=== PATIENT | male | born 1955 | race African-American/Black ===

== ENCOUNTER 2020-05-01 00:03 | Inpatient (IN) ==
[2020-05-01] MEDS ORDERED: PIPERACILLIN/TAZOBACTAM 3,375 MG in SODIUM CHLORIDE 0.9% 100 ML IV STA (00:36)
[2020-05-01 01:26] LABS: Basophils % 0.3 % (0.0-0.8); Eosinophils # 0.1 10*3/uL (0.0-0.87); Eosinophils % 0.3 % (0.00-10.9); Hematocrit 31.2 VOL% (42.0-52.0); Immature Granulocytes % 0.5 %; Immature Granulocytes Absolute 0.08 #; Lymphocytes # 0.9 10*3/uL (1.4-4.0); Lymphocytes % 5.9 % (21.2-54.2); Mean Corpuscular HGB Conc 32.1 GM/DL (32-36); Mean Platelet Volume 8.7 FL (9.6-12.0); Monocytes % 8.5 % (1.7-12.7); Neutrophils % 84.5 % (38.7-73.9); Platelet Count 388 T/CUMM (130-400); Red Blood Count 3.43 MC/CUMM (3.8-5.5); White Blood Count 14.8 T/CUMM (4-12)
[2020-05-01 01:57] LABS: Hypochromasia 1+; Platelet Estimate Increased
[2020-05-01 02:09] LABS: Alanine Aminotransferase 42 U/L (16-61); Albumin 2.7 G/DL (3.4-5.0); Alkaline Phosphatase 57 U/L (45-117); Aspartate Amino Transferase 238 U/L (0-37); Bilirubin,Total < 0.39 MG/DL (0.2-1.0); Blood Urea Nitrogen 36 MG/DL (7-18); Calcium 8.9 MG/DL (8.5-10.1); Carbon Dioxide 21 MMOL/L (21-32); Estimated Glom Filtration Rate 59 ML/MIN; Glucose 237 MG/DL (74-106); Osmolality,Calculated 273.9 MOS/KG (273-304); Potassium 4.5 MMOL/L (3.5-5.1); Sodium 129 MMOL/L (136-145); Total Protein 8.3 G/DL (6.4-8.2)
[2020-05-01 02:14] LABS: Bacteria,Urine Occasional /HPF (Few); Bilirubin,Urine Negative (Negative); Blood, Urine Large mg/dL (Negative); Glucose,Urine (UA) >=500 mg/dL (Negative); Granular Casts,Urine 1 /LPF (0-1); Ketones,Urine 5 mg/dL (Negative); Mucus,Urine Occasional /LPF (Occasional); Nitrite,Urine Negative (Negative); Protein,Urine 30 MG/DL; RBC,Urine 1 /HPF (0-4); Squamous Epithelial Cell,Urine Occasional /HPF (0-10); Urine Appearance CLEAR (Clear); Urine Color Yellow (Yellow); Urine Specific Gravity 1.024 (1.001-1.035); Urine Urobilinogen < 2.0 EU/DL (0.2-1.0); WBC,Urine 3 /HPF (0-6)
[2020-05-01] MEDS ORDERED: SODIUM CHLORIDE 0.9% 500 ML IV STA (02:22)
[2020-05-01] MEDS ORDERED: DEXTROSE 50% 25 GM/50 ML VIAL IV PRN ×2 (04:25→14:22)
[2020-05-01] MEDS ORDERED: HYDROmorphone 2 MG TABLET PO PRN (04:25)
[2020-05-01] MEDS ORDERED: GLUCAGON 1 MG VIAL IM PRN ×2 (04:25→14:22)
[2020-05-01] MEDS ORDERED: ONDANSETRON 4 MG/2 ML VIAL IV PRN (04:25)
[2020-05-01] MEDS ORDERED: LORazepam 2 MG/1 ML VIAL IV ONE (04:45)
[2020-05-01] MEDS: ACETAMINOPHEN 325 MG TABLET PO PRN ×3 (05:40→21:43)
[2020-05-01] MEDS: SODIUM CHLORIDE 0.9% 1,000 ML IV SCH ×2 (06:24→15:22)
[2020-05-01] MEDS: INSULIN REGULAR 100 UNIT/ML SUBCUT SCH ×3 (06:24→18:11)
[2020-05-01] MEDS ORDERED: SODIUM CHLORIDE 0.9% 1,000 ML IV STA (07:31)
[2020-05-01] MEDS ORDERED: VANCOMYCIN INJ 1,750 MG in SODIUM CHLORIDE 0.9% 500 ML IV ONE (08:00)
[2020-05-01] MEDS: DOCUSATE SODIUM 100 MG CAPSULE PO SCH ×2 (09:01→21:39)
[2020-05-01] MEDS: lamoTRIgine 100 MG TABLET PO SCH (09:01)
[2020-05-01] MEDS: GABAPENTIN 600 MG TABLET PO SCH ×3 (09:01→21:38)
[2020-05-01] MEDS: GLIMEPIRIDE 2 MG TABLET PO SCH ×2 (09:01→21:38)
[2020-05-01] MEDS: METOPROLOL SUCCINATE XL 50 MG TABLET PO SCH (09:02)
[2020-05-01] MEDS: PANTOPRAZOLE 40 MG TABLET PO SCH (09:02)
[2020-05-01] MEDS: LORazepam 1 MG TABLET PO SCH ×3 (09:09→21:38)
[2020-05-01] MEDS: QUEtiapine 100 MG TABLET PO SCH ×2 (09:09→21:38)
[2020-05-01] MEDS: VENLAFAXINE XR 75 MG CAPSULE PO SCH (09:14)
[2020-05-01] MEDS: SELENIUM 200 MCG TABLET PO SCH (09:14)
[2020-05-01] MEDS: PIPERACILLIN/TAZOBACTAM 3,375 MG in SODIUM CHLORIDE 0.9% 100 ML IV SCH ×3 (12:09→21:37)
[2020-05-01] MEDS ORDERED: GLIMEPIRIDE 2 MG TABLET PO ONE (14:26)
[2020-05-01] MEDS ORDERED: DOCUSATE SODIUM 100 MG CAPSULE PO ONE (14:27)
[2020-05-01] MEDS ORDERED: VENLAFAXINE XR 75 MG CAPSULE PO ONE (14:27)
[2020-05-01] MEDS ORDERED: lamoTRIgine 100 MG TABLET PO ONE (14:27)
[2020-05-01] MEDS ORDERED: PANTOPRAZOLE 40 MG TABLET PO ONE (14:28)
[2020-05-01] MEDS ORDERED: SELENIUM 200 MCG TABLET PO ONE (14:29)
[2020-05-01] MEDS ORDERED: QUEtiapine 100 MG TABLET PO ONE (14:30)
[2020-05-01] MEDS ORDERED: METOPROLOL SUCCINATE XL 50 MG TABLET PO ONE (14:30)
[2020-05-01] MEDS: traZODone 50 MG TABLET PO SCH (21:37)
[2020-05-02] MEDS: INSULIN REGULAR 100 UNIT/ML SUBCUT SCH ×4 (04:26→17:19)
[2020-05-02] MEDS: PIPERACILLIN/TAZOBACTAM 3,375 MG in SODIUM CHLORIDE 0.9% 100 ML IV SCH ×3 (05:29→21:20)
[2020-05-02 06:02] LABS: Basophils % 0.3 % (0.0-0.8); Eosinophils # 0.1 10*3/uL (0.0-0.87); Eosinophils % 0.9 % (0.00-10.9); Hematocrit 29.1 VOL% (42.0-52.0); Hemoglobin 9.1 GM/DL (14.0-18.0); Immature Granulocytes % 0.9 %; Immature Granulocytes Absolute 0.13 #; Lymphocytes # 0.8 10*3/uL (1.4-4.0); Lymphocytes % 5.6 % (21.2-54.2); Mean Corpuscular HGB Conc 31.3 GM/DL (32-36); Mean Corpuscular Volume 91.8 FL (87-102); Mean Platelet Volume 9.2 FL (9.6-12.0); Monocytes % 7.2 % (1.7-12.7); Neutrophils % 85.1 % (38.7-73.9); Platelet Count 362 T/CUMM (130-400); Red Blood Count 3.17 MC/CUMM (3.8-5.5); Red Cell Distribution Width 14.1 % (9.3-17.3)
[2020-05-02 06:30] LABS: Albumin 2.5 G/DL (3.4-5.0); Bilirubin,Total 0.4 MG/DL (0.2-1.0); Calcium 8.8 MG/DL (8.5-10.1); Potassium 4.2 MMOL/L (3.5-5.1); Total Protein 7.8 G/DL (6.4-8.2)
[2020-05-02 06:46] LABS: Osmolality,Calculated 278.2 MOS/KG (273-304); Potassium 4.1 MMOL/L (3.5-5.1)
[2020-05-02] MEDS ORDERED: BUPIVACAINE MPF 0.25% 30 ML VIAL ONE (08:24)
[2020-05-02] MEDS ORDERED: LIDOCAINE 1% 20 ML VIAL ONE (08:24)
[2020-05-02] MEDS ORDERED: DEXAMETHASONE 4 MG/1 ML VIAL ONE (08:32)
[2020-05-02] MEDS ORDERED: LIDOCAINE 2% 5 ML VIAL ONE (08:32)
[2020-05-02] MEDS ORDERED: ONDANSETRON 4 MG/2 ML VIAL ONE (08:32)
[2020-05-02] MEDS ORDERED: propofoL 200 MG/20 ML VIAL IV ONE (08:32)
[2020-05-02] MEDS ORDERED: fentaNYL 100 MCG/2 ML VIAL ONE (08:32)
[2020-05-02] MEDS ORDERED: MIDAZOLAM 2 MG/2 ML VIAL ONE (08:33)
[2020-05-02] MEDS ORDERED: ACETAMINOPHEN 1,000 MG/100 ML VIAL IV ONE (08:48)
[2020-05-02] MEDS ORDERED: PHENYLEPHRINE 1 MG/10 ML SYRINGE IV ONE ×2 (08:59→09:26)
[2020-05-02] MEDS ORDERED: SODIUM CHLORIDE 0.9% 250 ML IV SCH (09:00)
[2020-05-02] MEDS ORDERED: SEVOFLURANE 1 UNIT/15 MINUTE INH ONE (09:11)
[2020-05-02] MEDS ORDERED: SODIUM CHLORIDE 0.9% 1,000 ML IV ONE (09:11)
[2020-05-02] MEDS: GABAPENTIN 600 MG TABLET PO SCH ×3 (10:44→21:09)
[2020-05-02] MEDS: METOPROLOL SUCCINATE XL 50 MG TABLET PO SCH (10:44)
[2020-05-02] MEDS: VENLAFAXINE XR 75 MG CAPSULE PO SCH (10:45)
[2020-05-02] MEDS: lamoTRIgine 100 MG TABLET PO SCH (10:45)
[2020-05-02] MEDS: GLIMEPIRIDE 2 MG TABLET PO SCH ×2 (10:46→21:09)
[2020-05-02] MEDS: PANTOPRAZOLE 40 MG TABLET PO SCH (10:46)
[2020-05-02] MEDS: QUEtiapine 100 MG TABLET PO SCH ×2 (10:47→21:09)
[2020-05-02] MEDS: LORazepam 1 MG TABLET PO SCH ×3 (10:47→21:09)
[2020-05-02] MEDS: DOCUSATE SODIUM 100 MG CAPSULE PO SCH ×2 (10:47→21:09)
[2020-05-02] MEDS: SELENIUM 200 MCG TABLET PO SCH (10:47)
[2020-05-02] MEDS ORDERED: DEXTROSE 50% 25 GM/50 ML VIAL IV PRN (12:26)
[2020-05-02] MEDS: VANCOMYCIN INJ 1,750 MG in SODIUM CHLORIDE 0.9% 500 ML IV SCH (12:41)
[2020-05-02] MEDS: SODIUM BICARB INJ 50 MEQ in SODIUM CHLORIDE 0.45% 1,000 ML IV SCH (14:44)
[2020-05-02] MEDS: SODIUM CHLORIDE 0.9% 1,000 ML IV SCH (14:47)
[2020-05-02] MEDS: ASPIRIN EC 81 MG TABLET PO SCH (14:48)
[2020-05-02] MEDS ORDERED: EZETIMIBE 10 MG TABLET PO SCH (21:00)
[2020-05-02] MEDS: traZODone 50 MG TABLET PO SCH (21:08)
[2020-05-03] MEDS: INSULIN REGULAR 100 UNIT/ML SUBCUT SCH ×5 (00:14→23:54)
[2020-05-03] MEDS: PIPERACILLIN/TAZOBACTAM 3,375 MG in SODIUM CHLORIDE 0.9% 100 ML IV SCH ×3 (04:08→21:09)
[2020-05-03 05:25] LABS: Basophils % 0.3 % (0.0-0.8); Eosinophils # 0.1 10*3/uL (0.0-0.87); Eosinophils % 0.9 % (0.00-10.9); Hematocrit 27.2 VOL% (42.0-52.0); Hemoglobin 8.7 GM/DL (14.0-18.0); Immature Granulocytes % 1.2 %; Immature Granulocytes Absolute 0.13 #; Lymphocytes # 0.9 10*3/uL (1.4-4.0); Lymphocytes % 8.3 % (21.2-54.2); Mean Corpuscular Volume 89.5 FL (87-102); Monocytes % 5.3 % (1.7-12.7); Platelet Count 391 T/CUMM (130-400); Red Blood Count 3.04 MC/CUMM (3.8-5.5); Red Cell Distribution Width 14.3 % (9.3-17.3)
[2020-05-03 05:41] LABS: Calcium 8.4 MG/DL (8.5-10.1); Potassium 3.8 MMOL/L (3.5-5.1)
[2020-05-03] MEDS: CHOLECALCIFEROL 1,000 UNIT TABLET PO SCH (08:18)
[2020-05-03] MEDS: GLIMEPIRIDE 2 MG TABLET PO SCH ×2 (08:18→21:08)
[2020-05-03] MEDS: LORazepam 1 MG TABLET PO SCH ×3 (08:18→21:08)
[2020-05-03] MEDS: VENLAFAXINE XR 75 MG CAPSULE PO SCH (08:18)
[2020-05-03] MEDS: MULTIVITAMIN (CENTRUM) TABLET PO SCH (08:19)
[2020-05-03] MEDS: ASPIRIN EC 81 MG TABLET PO SCH (08:19)
[2020-05-03] MEDS: METOPROLOL SUCCINATE XL 50 MG TABLET PO SCH (08:20)
[2020-05-03] MEDS: GABAPENTIN 600 MG TABLET PO SCH ×3 (08:20→21:08)
[2020-05-03] MEDS: SELENIUM 200 MCG TABLET PO SCH (08:20)
[2020-05-03] MEDS: QUEtiapine 100 MG TABLET PO SCH ×2 (08:21→21:08)
[2020-05-03] MEDS: FENOFIBRATE 160 MG TABLET PO SCH (08:25)
[2020-05-03] MEDS: lamoTRIgine 100 MG TABLET PO SCH (08:26)
[2020-05-03] MEDS: DOCUSATE SODIUM 100 MG CAPSULE PO SCH ×2 (08:26→21:08)
[2020-05-03] MEDS: PANTOPRAZOLE 40 MG TABLET PO SCH (08:26)
[2020-05-03] MEDS: VANCOMYCIN INJ 1,750 MG in SODIUM CHLORIDE 0.9% 500 ML IV SCH (12:18)
[2020-05-03] MEDS: SODIUM BICARB INJ 50 MEQ in SODIUM CHLORIDE 0.45% 1,000 ML IV SCH ×2 (15:02)
[2020-05-03] MEDS: traZODone 50 MG TABLET PO SCH (21:08)
[2020-05-04] MEDS: SODIUM BICARB INJ 50 MEQ in SODIUM CHLORIDE 0.45% 1,000 ML IV SCH (01:34)
[2020-05-04] MEDS: PIPERACILLIN/TAZOBACTAM 3,375 MG in SODIUM CHLORIDE 0.9% 100 ML IV SCH (05:08)
[2020-05-04] MEDS: INSULIN REGULAR 100 UNIT/ML SUBCUT SCH (05:15)
[2020-05-04 06:14] LABS: Basophils # 0.1 10*3/uL (0.0-0.2); Basophils % 0.7 % (0.0-0.8); Eosinophils # 0.4 10*3/uL (0.0-0.87); Eosinophils % 5.3 % (0.00-10.9); Hematocrit 29.6 VOL% (42.0-52.0); Hemoglobin 9.2 GM/DL (14.0-18.0); Immature Granulocytes % 1.6 %; Immature Granulocytes Absolute 0.12 #; Lymphocytes # 1.3 10*3/uL (1.4-4.0); Lymphocytes % 18.2 % (21.2-54.2); Mean Corpuscular HGB Conc 31.1 GM/DL (32-36); Mean Corpuscular Volume 93.4 FL (87-102); Mean Platelet Volume 8.8 FL (9.6-12.0); Monocytes % 9.2 % (1.7-12.7); Platelet Count 403 T/CUMM (130-400); Red Blood Count 3.17 MC/CUMM (3.8-5.5); Red Cell Distribution Width 14.6 % (9.3-17.3); White Blood Count 7.3 T/CUMM (4-12)
[2020-05-04] MEDS: LORazepam 1 MG TABLET PO SCH (09:12)
[2020-05-04] MEDS: VENLAFAXINE XR 75 MG CAPSULE PO SCH (09:13)
[2020-05-04] MEDS: lamoTRIgine 100 MG TABLET PO SCH (09:14)
[2020-05-04] MEDS: ASPIRIN EC 81 MG TABLET PO SCH (09:14)
[2020-05-04] MEDS: GLIMEPIRIDE 2 MG TABLET PO SCH (09:14)
[2020-05-04] MEDS: CHOLECALCIFEROL 1,000 UNIT TABLET PO SCH (09:14)
[2020-05-04] MEDS: MULTIVITAMIN (CENTRUM) TABLET PO SCH (09:15)
[2020-05-04] MEDS: FENOFIBRATE 160 MG TABLET PO SCH (09:15)
[2020-05-04] MEDS: METOPROLOL SUCCINATE XL 50 MG TABLET PO SCH (09:15)
[2020-05-04] MEDS: DOCUSATE SODIUM 100 MG CAPSULE PO SCH (09:15)
[2020-05-04] MEDS: GABAPENTIN 600 MG TABLET PO SCH (09:15)
[2020-05-04] MEDS: QUEtiapine 100 MG TABLET PO SCH (09:15)
[2020-05-04] MEDS: PANTOPRAZOLE 40 MG TABLET PO SCH (09:16)
[2020-05-04] MEDS: SELENIUM 200 MCG TABLET PO SCH (09:16)
[2020-05-04 09:26] LABS: Calcium 8.4 MG/DL (8.5-10.1); Potassium 3.9 MMOL/L (3.5-5.1)
[2020-05-04 12:06] VITALS: BP 134/76
[2020-05-04] MEDS ORDERED: CEFUROXIME 500 MG TABLET PO SCH (13:00)
[2020-05-04] MEDS ORDERED: CIPROFLOXACIN 500 MG TABLET PO SCH (13:00)
[2020-05-04] MEDS ORDERED: VANCOMYCIN INJ 2,000 MG in SODIUM CHLORIDE 0.9% 500 ML IV SCH (14:00)
== END 2020-05-04 13:40 | disposition home health service (06) | DRG 617 ==
LOC: N.ED 00:03 → N.EDINP 00:03 → N.5E 10:30
PROVIDERS: ADMIT Family Medicine; ATTEND Family Medicine